=== PATIENT | female | born 1980 | race Two or more races ===

== ENCOUNTER 2016-09-07 21:04 | Emergency (ER) | payer MEDICAID ==
[2016-09-07 21:45] VITALS: O2SAT 100
[2016-09-07 22:10] VITALS: BP 139/96; PULSE 66; RESP 20; TEMP 97.8
--- NOTE | 2016-09-07 23:11 | C.PDOC ---
History Of Present Illness 36 y/o female presents to ED with complaint of right frontal headache for 2 months. Patient reports history of chronic headaches and states that Advil generally helps, but notes pain has been recurrent despite taking Advil. Patient also brings her daughter to ER for evaluation today and is requesting evaluation but she reports decreasing pain- describes pain as 2/10. Denies fever , chills, neck pain, visual changes, nausea, vomiting, weakness or numbness, or associated symptoms. Time Seen by Provider: 09/07/16 22:18 Chief Complaint (Nursing): Headache History Per: Patient History/Exam Limitations: no limitations Onset/Duration Of Symptoms: Persistent (2 months) Current Symptoms Are (Timing): Still Present Quality: "Pain" Preceeding Symptoms: None Associated Symptoms: denies: Photophobia, Blurred Vision, Nausea, Vomiting, Extremity Weakness Recent travel outside of the [place]: No Past Medical History Reviewed: Historical Data, Nursing Documentation, Vital Signs Vital Signs: Last Vital Signs Temp 97.8 F 09/07/16 22:09 Pulse 66 09/07/16 22:09 Resp 20 09/07/16 22:09 BP 139/96 H 09/07/16 22:09 Pulse Ox 100 09/08/16 04:09 - Medical History PMH: Migraine Family History: States: Unknown Family Hx - Social History Hx Alcohol Use: No Hx Substance Use: No Review Of Systems Except As Marked, All Systems Reviewed And Found Negative. Constitutional: Negative for: Fever, Chills Eyes: Negative for: Vision Change Gastrointestinal: Negative for: Nausea, Vomiting Musculoskeletal: Negative for: Neck Pain Skin: Negative for: Rash Neurological: Positive for: Headache. Negative for: Dizziness Physical Exam - Physical Exam Appears: Non-toxic, No Acute Distress Skin: Warm, Dry Head: Atraumatic, Normacephalic Eye(s): bilateral: Normal Inspection, PERRL, EOMI, Other (no nystagmus or photophobia) Neck: Normal ROM, No Midline Cervical Tenderness, No Paracervical Tenderness, Supple (no meningeal signs) Chest: Symmetrical Cardiovascular: Rhythm Regular Respiratory: Normal Breath Sounds, No Rales, No Rhonchi, No Wheezing Extremity: Normal ROM, Capillary Refill (< 2 sec. ) Neurological/Psych: Oriented x3, Normal Speech, Normal Cognition, Normal Cranial Nerves ED Course And Treatment O2 Sat by Pulse Oximetry: 100 (RA) Pulse Ox Interpretation: Normal Progress Note: On reassessment, patient is resting comfortably, and is in no acute distress. pt refused pIn meds- Stating " its really no that bad". Patient instructed to follow up with clinic/PMD within 1-2 days. Disposition Counseled Patient/Family Regarding: Diagnosis, Need For Followup - Disposition Disposition: HOME/ ROUTINE Disposition Time: 23:09 Condition: STABLE Additional Instructions: Take meds as directed Follow up with PMD Return to ER if worse Prescriptions: Acetaminophen/Butalbital/Caf [Fioricet] 1 - 2 tab PO TID PRN #20 tab PRN Reason: Headache Instructions: Migraine Headache (ED) - Clinical Impression Clinical Impression: Migraine, Headache - PA / RN MANAGED CARE / Resident Statement MD/DO has reviewed & agrees with the documentation as recorded. - Scribe Statement The provider has reviewed the documentation as recorded by the Rose Ta Provider Scribe Attestation: All medical record entries made by the Rose were at my direction and personally dictated by me. I have reviewed the chart and agree that the record accurately reflects my personal performance of the history, physical exam, medical decision making, and the department course for this patient. I have also personally directed, reviewed, and agree with the discharge instructions and disposition.
== END 2016-09-07 23:20 | disposition home or self-care (01) ==
LOC: C.ER 21:04
DX: G43.909 Migraine, unspecified, not intractable, without status migrainosus (principal)